=== PATIENT | female | born 1950 | race Caucasian/White ===

== ENCOUNTER 2017-07-30 00:51 | Inpatient (IN) | payer MEDICARE ==
[~2017-07-30] VITALS: Ht 177.8 cm; Wt 77.7 kg
[2017-07-30] VITALS (19 sets, daily range): BP systolic 118–156; BP diastolic 61–93; BMI 23.6
--- NOTE | ~2017-07-30 | HEMODYNAMI ---
PATIENT:SARAN CHANG MEDICAL RECORD: [id number] : 50 LOCATION:[facility] D.[address] [facility]# [id number] ADMISSION DATE: 07/30/17 Generatedon:07/30/20174:07 Patient name: SARAN CHANG Patient #: [id number] SSN: : 1950 Date of study: 07/30/2017 Page: Of Hemodynamic Procedure Report Patient Data Patient Demographics Procedure consent was obtained First Name: SARAN Gender: Female Last Name: BERNARDO : 1950 Middle Initial: German Age: 66 year(s) Patient #: [id number] Race: Unknown Additional ID: [id number] Contact details Address: [address] [place] [address] State: [place] City: [place] Zip code: [address] Admission Admission Data Admission Date: 07/30/2017 Admission Time: 3:57 Room #: D2305 Procedure Procedure Types Cath Procedure Diagnostic Procedure LHC LHC w/Coronaries Devine Insertion PCI Procedure AMI/SVG/PLANT FACILITIES TECHNICIAN PTCA or Stent AMI-BMS/NEHA Initial Miscellaneous Procedures Moderate Sedation up to 45 minutes Peripheral Cath Diagnostic Procedure Cath Peripheral Ebuvw-Xmyusuw-Qkt-Off Procedure Description Procedure Date Procedure Date: 07/30/2017 Procedure Start Time: 1:58 Procedure End Time: 3:34 Procedure Staff Name Function Ericka Comer RT Monitor Roxanne Syed RN Nurse Griffin Johnson MD Performing Physician Landon Mclain RT Scrub Procedure Data Cath Procedure Fluoroscopy Diagnostic fluoroscopy Total fluoroscopy Time: time: 17.5 min 17.5 min Diagnostic fluoroscopy Total fluoroscopy dose: dose: 1204 mGy 1204 mGy Contrast Material Contrast Material Type Amount (ml) Isovue 300 178 Entry Location Entry Primary Successful Side Size Upsize Upsize Entry Closure Succes sful Closure Location (Fr) 1 (Fr) 2 (Fr) Remarks Device Remarks Femoral Right 6 Fr Exoseal artery Short Femoral Left 6 Fr Exoseal artery Short Estimated blood loss: 10 ml Diagnostic catheters Device Type Used For End Catheter Placement MULTIPACK 3DRC 5Fr Procedure catheter MULTIPACK 3DRC 5Fr Right Coronary catheter Angiography MULTIPACK JL 4.0 5Fr Left Coronary catheter Angiography MULTIPACK Pigtail 5 Fr LV Angiography catheter MULTIPACK Pigtail 5 Fr Abdominal catheter aortogram with runoff Procedure Complications No complications Procedure Medications Medication Administration Route Dosage Oxygen NC 2 l/min Lidocaine 2% added to field 20 Heparin Flush Bag added to field 2 bags (1000units/500ml NS) 0.9% NaCl I.V. 100 ml/hr Versed I.V. 1 mg Fentanyl I.V. 50 mcg Oxygen NC 4 l/min Versed I.V. 1 mg Fentanyl I.V. 50 mcg Fentanyl I.V. 50 mcg Fentanyl I.V. 50 mcg Versed I.V. 1 mg Versed I.V. 1 mg Heparin Bolus I.V. 7000 units Integrilin (Bolus I.V. 6.8 ml 2mg/ml) Cardene I.C. 150 mcg Integrilin Drip 11.5 ml/hr (75mg/100ml) Fentanyl I.V. 50 mcg Fentanyl I.V. 50 mcg Plavix P.O. 600 mg Hemodynamics Rest Heart Rate: 91 (bpm) Pressure Samples Time Site Value (mmHg) Purpose Heart Use Rate(bpm) 2:54 LV 115/7,17 EDP 71 2:56 LV 122/8,19 Pullback 71 2:56 AO 118/58(83) Pullback 71 Gradients Valve Time Site 1 Site 2 Mean SEP/DFP Peak To Heart Use (mmHg) (sec/min) Peak Rate (mmHg) (bpm) Aortic 2:56 LV AO 9 18 4 71 122/8,19 118/58(83) Calculations Valve P-P Mean Valve Index Valve Source Name Gradient Area Flow (cm2) Aortic 4 9 4 9 Snapshots Pre Cath Intra NCS Post Cath Vital Signs Time Heart Resp SPO2 etCO2 NIBP (mmHg) Rhythm Pain Sedation Rate (ipm) (%) (mmHg) Status Level (bpm) 1:55:40 87 20 18.3 Time NSR w/ ST 0 (11) 10(A) Exceeded Elevation , No pain 2:01:26 91 19 94 22.8 180/106(146) NSR w/ ST 0 (11) 10(A) Elevation , No pain 2:06:13 87 18 93 19.8 169/100(137) NSR w/ ST 0 (11) 10(A) Elevation , No pain 2:11:02 88 19 93 22.8 181/107(142) NSR w/ ST 0 (11) 9(A) Elevation , No pain 2:15:51 90 18 92 22.1 175/108(143) NSR w/ ST 0 (11) 9(A) Elevation , No pain 2:20:36 92 15 93 25.2 169/107(144) NSR w/ ST 0 (11) 9(A) Elevation , No pain 2:25:22 89 16 93 25.2 167/96(134) NSR w/ ST 0 (11) 9(A) Elevation , No pain 2:30:05 95 13 93 24.4 161/95(130) NSR w/ ST 0 (11) 9(A) Elevation , No pain 2:34:45 72 16 92 24.4 127/77(99) NSR w/ ST 0 (11) 9(A) Elevation , No pain 2:39:26 70 17 92 22.1 115/67(101) NSR w/ ST 0 (11) 9(A) Elevation , No pain 2:44:05 72 19 93 19 122/71(100) NSR w/ ST 0 (11) 9(A) Elevation , No pain 2:48:45 71 20 93 21.3 100/68(86) NSR w/ ST 0 (11) 9(A) Elevation , No pain 2:53:20 69 19 93 20.6 113/65(90) NSR w/ ST 0 (11) 9(A) Elevation , No pain 2:58:00 68 19 94 21.3 105/62(87) NSR w/ ST 0 (11) 9(A) Elevation , No pain 3:02:39 68 16 93 22.8 116/61(89) NSR w/ ST 0 (11) 10(A) Elevation , No pain 3:07:17 70 18 90 23.6 111/67(92) NSR w/ ST 0 (11) 9(A) Elevation , No pain 3:11:56 72 15 92 24.4 115/71(94) NSR w/ ST 0 (11) 9(A) Elevation , No pain 3:16:35 74 17 92 21.3 118/72(97) NSR w/ ST 0 (11) 9(A) Elevation , No pain 3:21:13 72 16 93 24.4 129/72(107) NSR w/ ST 0 (11) 9(A) Elevation , No pain 3:25:56 69 19 96 20.6 126/70(103) NSR w/ ST 0 (11) 9(A) Elevation , No pain 3:30:36 68 18 97 22.8 126/75(105) NSR w/ ST 0 (11) 9(A) Elevation , No pain Medications Time Medication Route Dose Verified Delivered Reason Notes Effectiveness by by 1:52:02 Oxygen NC 2 Griffin Buffie used for l/min Alex Syed RN procedure 1:52:09 Lidocaine 2% added 20ml Griffin Griffin for local to vial Alex Johnson MD anesthetic field x 2 1:52:14 Heparin Flush added 2 Griffin Griffin used for Bag to bags Alex Johnson MD procedure (1000units/500ml field NS) 1:52:23 0.9% NaCl I.V. 100 Griffin Buffie Per physician ml/hr Alex Syed RN 1:57:40 Versed I.V. 1 mg Griffin Buffie for sedation Alex Syed RN 1:57:46 Fentanyl I.V. 50 Griffin Buffie for sedation mcg Alex Syed RN 2:05:42 Versed I.V. 1 mg Griffin Buffie for sedation Alex Syed RN 2:05:45 Fentanyl I.V. 50 Griffin Buffie for sedation mcg Alex Syed RN 2:08:30 Oxygen NC 4 Griffin Buffie used for l/min Alex Syed RN procedure 2:15:09 Fentanyl I.V. 50 Griffin Buffie for sedation mcg Alex Syed RN 2:15:33 Versed I.V. 1 mg Griffin Buffie for sedation Alex Syed RN 2:25:24 Fentanyl I.V. 50 Griffin Buffie for sedation mcg Alex Syed RN 2:25:56 Versed I.V. 1 mg Griffin Buffie for sedation Alex Syed RN 2:31:01 Heparin Bolus I.V. 7,000 Griffin Buffie for units Alex Syed RN anticoagulation 2:43:59 Integrilin I.V. 6.8 Griffin Buffie for wasted (Bolus 2mg/ml) ml Alex Syed RN antiplatelet 3.2 ml therapy of vial 2:47:51 Cardene I.C. 150 Griffin Griffin for mcg Alex perkins 2:57:22 Integrilin Drip I.V. 11.5 Griffin Buffie for (75mg/100ml) drip x ml/hr Alex Syed RN antiplatelet 12 hrs therapy 3:02:25 Fentanyl I.V. 50 Griffin Buffie for sedation armida Syed RN 3:08:25 Fentanyl I.V. 50 Griffin Buffie for sedation armida Syed RN 3:12:51 Plavix P.O. 600 Griffin Diamanteie for mg Alex Syed RN antiplatelet therapy Procedure Log Time Note 1:30:14 Roxanne Syed RN sent for patient. Start room use. 1:38:23 Time tracking: Call back 1:38:27 Plan of Care:Hemodynamics will remain stable., Cardiac rhythm will remain stable., Comfort level will be maintained., Respiratory function will remain adequate., Patient/ family verbilizes understanding of procedure., Procedure tolerated without complication., Recovers from procedure without complications.. 1:50:33 Patient received from ED to CCL 1 Alert and oriented. Tansferred to table in Supine position. 1:50:35 Correct patient and procedure confirmed by team. 1:50:35 Warm blankets applied, and slick hugger turned on for patient comfort. 1:50:36 Signed procedure consent form obtained from patient. 1:50:37 ECG and BP/O2 sat monitors applied to patient. 1:50:46 Rhythm: sinus rhythm , w/ ST elevation 1:50:48 Full Disclosure recording started 1:50:52 H&P Date Dictated: 07/30/2017 Emergent; H&P N/A. 1:50:55 Pre-op teaching completed and patient verbalized understanding. 1:50:55 Pre-procedure instructions explained to patient. 1:50:56 Family in waiting room. 1:50:58 Patient NPO since Midnight. 1:51:04 Is patient on blood thinner?No 1:51:07 Patient diabetic? No. 1:51:11 Previous problem with sedation/anesthesia? No ? 1:51:12 Sleep apnea? No 1:51:12 Snore? Yes 1:51:14 Opens mouth fully? Yes 1:51:14 Deviated septum? No 1:51:15 Sticks out tongue? Yes 1:51:16 Airway obstruction? No ? 1:51:19 Dentures? Yes oUT 1:51:22 Pre procedure: right dorsailis pedis pulse 2+ Normal; easily identifiable; not easily obliterated 1:51:24 Patient pain scale 0/10 ?. 1:51:32 IV patent on arrival in right antecubital with 0.9% NaCl at [facility] 1:51:45 Lab results completed and on chart. 1:51:48 Right groin area was prepped with chlora-prep and draped in sterile fashion 1:51:49 Sharps counted by scrub and verified by R.N. 1:51:49 Alarms reviewed by R. N. 1:51:51 Final Timeout: patient, procedure, and site verified with staff and physician. All members of the team are in agreement. 1:51:52 Right groin site verified by team. 1:51:56 Physical assessment completed. ASA score P 2 - A patient with mild systemic disease as per Griffin Johnson MD. 1:52:00 Sedation plan: IV Moderate Sedation Medication:Versed, Fentanyl 1:52:02 Oxygen 2 l/min NC was administered by Roxanne Syed RN; used for procedure; 1:52:09 Lidocaine 2% 20ml vial x 2 added to field was administered by Griffin Johnson MD; for local anesthetic; 1:52:14 Heparin Flush Bag (1000units/500ml NS) 2 bags added to field was administered by Griffin Johnson MD; used for procedure; 1:52:23 0.9% NaCl 100 ml/hr I.V. was administered by Roxanne Syed RN; Per physician; 1:52:29 Vital chart was started 1:57:40 Versed 1 mg I.V. was administered by Roxanne Syed RN; for sedation; 1:57:46 Fentanyl 50 mcg I.V. was administered by Roxanne Syed RN; for sedation; 1:57:55 Use device set Femoral Dx 1:57:57 Bag Decanter (2001S) opened to sterile field. 1:57:57 ACIST Syringe (07081) opened to sterile field. 1:57:58 DIAGNOSTIC WIRE .035 260cm J wire (927256) opened to sterile field. 1:57:58 Medline Cath Pack ([id number]) opened to sterile field. 1:58:00 ACIST Manifold (59544) opened to sterile field. 1:58:00 ACIST Hand Control (88809) opened to sterile field. 1:58:01 Tegaderm 4 x 4 (1626W) opened to sterile field. 1:58:01 DIAGNOSTIC Multipack 5Fr catheter set (KR5951) opened to sterile field. 1:58:02 PERCUTANEOUS ENTRY 19GA needle opened to sterile field. 1:58:06 Zero performed for pressure channel P1 1:58:09 Procedure started. 1:58:16 Local anesthetic to right femoral artery with Lidocaine 2% by Griffin Johnson MD.INITIAL ACCESS ONLY 2:00:10 Baseline sample Acquired. 2:05:42 Versed 1 mg I.V. was administered by Roxanne Syed RN; for sedation; 2:05:45 Fentanyl 50 mcg I.V. was administered by Roxanne Syed RN; for sedation; 2:06:04 Left groin area was prepped with chlora-prep and draped in sterile fashion 2:06:11 A 6 Fr Short sheath was inserted into the Right Femoral artery 2:07:40 A MULTIPACK 3DRC 5Fr catheter was advanced over the wire and used for Procedure. UNABLE TO ADVANCE CATHETER UP RT ILIAC 2:08:30 Oxygen 4 l/min NC was administered by Roxanne Syed RN; used for procedure; 2:09:08 GLIDEWIRE wire advanced. 2:09:15 Wire removed. 2:09:30 Catheter removed. 2:10:18 Local anesthetic to left femerol artery with Lidocaine 2% by Griffin Johnson MD.ADDITIONAL ACCESS 2:11:06 SHEATH 6FR [place] (NSJ178) opened to sterile field. 2:11:06 SHEATH 6FR [place] (KPR274) opened to sterile field. 2:11:09 GLIDE WIRE ANGLE 260cm (SM6383) opened to sterile field. 2:15:09 Fentanyl 50 mcg I.V. was administered by Roxanne Syed RN; for sedation; 2:15:33 Versed 1 mg I.V. was administered by Roxanne Syed RN; for sedation; 2:19:13 WHOLEY 300cm 0.035 wire ([id number]) opened to sterile field. 2:19:55 WHOLEY wire advanced. 2:23:17 A 6 Fr Short sheath was inserted into the Left Femoral artery 2:23:40 ACCPCI delayed due to OCCLUDED RT ILIAC; DIFFICULTY ACCESSING LFA.(if Door-to--Balloon Time >90 minutes) 2:25:24 Fentanyl 50 mcg I.V. was administered by Roxanne Syed RN; for sedation; 2:25:56 Versed 1 mg I.V. was administered by Roxanne Syed RN; for sedation; 2:26:08 A MULTIPACK 3DRC 5Fr catheter was advanced over the wire and used for Right Coronary Angiography. 2:26:33 Catheter removed. 2:26:40 A MULTIPACK JL 4.0 5Fr catheter was advanced over the wire and used for Left Coronary Angiography. 2:28:01 Catheter removed. 2:28:06 Use device set JOHNSON PCI 2:28:12 BMW 300cm [place] 2 J wire ([id number]) opened to sterile field. 2:28:14 INFLATOR Merit BasixCompak (HH8241) opened to sterile field. 2:28:15 TUBING High Pressure Extension Tubing ([place]) (RZ2704I) opened to sterile field. 2:28:18 GUIDE 6FR XBLAD 3.5 catheter ([id number]) opened to sterile field. 2:29:02 6 Fr XBLAD 3.5 guide catheter was inserted over the wire 2:31:01 Heparin Bolus 7,000 units I.V. was administered by Roxanne Syed RN; for anticoagulation; 2:31:14 BMW wire advanced. 2:34:30 Inflation number: 1 A EMERGE OTW 2.5 x 15 stent ([id number]) was prepped and advanced across the Mid CX, then inflated to 8 MERNA for 0:12 (min:sec). 2:34:54 Inflation number: 2 The EMERGE OTW 2.5 x 15 stent ([id number]) was reinflated across the Mid CX, to 10 MERNA for 0:12 (min:sec). 2:39:45 Balloon removed over the wire. 2:41:46 Inflation Number: 3 A INTEGRITY OTW 2.5 x 14 stent ([id number]) was prepped and advanced across the Mid CX. The stent was deployed at 12 MERNA for 0:12 (min:sec). 2:41:53 Stent catheter was removed intact over wire. 2:43:59 Integrilin (Bolus 2mg/ml) 6.8 ml I.V. was administered by Roxanne Syed RN; for antiplatelet therapy; wasted 3.2 ml of vial 2:45:39 Inflation Number: 4 A INTEGRITY OTW 2.75 X 14 stent ([id number]) was prepped and advanced across the Mid CX. The stent was deployed at 13 MERNA for 0:12 (min:sec). 2:47:51 Cardene 150 mcg I.C. was administered by Griffin Johnson MD; for vasodilation; 2:52:53 Wire removed. 2:52:53 Stent catheter was removed intact over wire. 2:52:54 Guide catheter removed. 2:54:18 A MULTIPACK Pigtail 5 Fr catheter was advanced over the wire and used for LV Angiography. 2:55:22 LV gram done using CHACKO 2:55:23 LV hemodynamics recorded. 2:55:25 Injector settings: Ml/sec: 10, Volume: 20, 2:55:31 EF : 40 % 2:57:17 A MULTIPACK Pigtail 5 Fr catheter was advanced over the wire and used for Abdominal aortogram with runoff. 2:57:22 Integrilin Drip (75mg/100ml) 11.5 ml/hr I.V. drip x 12 hrs was administered by Roxanne Syed RN; for antiplatelet therapy; 3:02:25 Fentanyl 50 mcg I.V. was administered by Roxanne Syed RN; for sedation; 3:08:25 Fentanyl 50 mcg I.V. was administered by Roxanne Syed RN; for sedation; 3:08:38 EXOSEAL 6Fr (EX600) opened to sterile field. 3:08:39 EXOSEAL 6Fr (EX600) opened to sterile field. 3:08:40 Tegaderm 4 x 4 (1626W) opened to sterile field. 3:08:54 Catheter removed. 3:09:05 Sheath removed intact; hemostasis achieved with Exoseal to the Left Femoral artery. 3:09:17 Sheath removed intact; hemostasis achieved with Exoseal to the Right Femoral artery. 3:11:19 Procedure ended.(Physican Out) 3:11:31 Fluoroscopy time 17.50 minutes. 3:11:35 Fluoroscopy dose: 1204 mGy 3:11:35 Flurop Dose total: 1204 3:11:39 Contrast amount:Isovue 300 178ml. 3:11:40 Sharps counted by scrub and verified by R.N. 3:11:41 Insertion/operative site no bleeding no hematoma. 3:11:45 Post-op/insertion site Left Femoral artery dressed using a 4 x 4 and Tegaderm. 3:11:50 Post left femerol artery:stable, clean and dry 3:11:55 Post-op/insertion site Right Femoral artery dressed using a 4 x 4 and Tegaderm. 3:11:59 Post right femoral artery:stable, clean and dry 3:12:00 Post Procedure Pulses reassessed and unchanged 3:12:04 Post-procedure physical assessment completed. ASA score P 2 - A patient with mild systemic disease as per Griffin Johnson MD. 3:12:06 Post procedure rhythm: unchanged. 3:12:08 Estimated blood loss: 10 ml 3:12:12 Patient needs reinforcement of post procedure teaching. 3:12:12 Post procedure instruction explained to patient.Patient verbalizes understanding. 3:12:31 Procedure type changed to Cath procedure, Diagnostic procedure, LHC, LHC w/Coronaries, Devine Insertion, PCI procedure, AMI/SVG/PLANT FACILITIES TECHNICIAN PTCA or Stent, AMI-BMS/NEHA Initial, Miscellaneous Procedures, Moderate Sedation up to 45 minutes, Peripheral Cath Diagnostic Procedure, Cath Peripheral, Ksauv-Pnfyceh-Uja-Off 3:12:36 Procedure Complication : No complications 3:12:38 See physician's report for complete and final results. 3:12:51 Plavix 600 mg P.O. was administered by Roxanne Syed RN; for antiplatelet therapy; 3:22:01 DEVINE 16FR w/Drainage Bag (297548K) opened to sterile field. 3:22:28 16fr standard devine inserted no resistance clear yellow urine obtained. 3:23:27 Procedure and supply charges have been captured, reviewed, submitted and are correct. 3:33:43 Vital chart was stopped 3:33:46 Report given to ICU. 3:33:50 Patient transfered to ICU with Bed. 3:34:00 Full Disclosure recording stopped 3:34:00 Procedure ended. 3:34:02 End room use (Document Last) 4:06:50 Patient developed Rt Femoral hematoma once transferred to ICU. Femstop was placed over RFA. Intervention Summary Intervention Notes Time ActionType Lesion and Equipment Action# Pressure Duration Attributes Used 2:34:30 Inflate Mid CX EMERGE OTW 1 8 00:13 balloon 2.5 x 15 stent ([id number]) 2:34:54 Reinflate Mid CX EMERGE OTW 2 10 00:12 balloon 2.5 x 15 stent ([id number]) 2:41:46 Place stent Mid CX INTEGRITY 3 12 00:12 OTW 2.5 x 14 stent ([id number]) 2:45:39 Place stent Mid CX INTEGRITY 4 13 00:12 OTW 2.75 X 14 stent ([id number]) Device Usage Item Name Manufacture Quantity Catalog Number Hospital Part Current Min imal Lot# / Charge Number Stock Stock Serial# Code ACIST Acist 1 17116 407229 393167 434918 20 Syringe Medical (81349) Systems Inc Bag Decanter Microtek 1 2001S 026277 32126 317800 5 () Medical Inc. Medline Cath Cardinal 1 [id number] 592611 32235 203789 5 Pack Health ([id number]) DIAGNOSTIC [place] 1 139226 837942 088876 685531 30 WIRE .035 260cm J wire (955507) ACIST Hand Acist 1 93848 768796 191280 853786 5 Control Medical (65344) Systems Inc ACIST Acist 1 45759 080650 075079 954211 5 Manifold Medical (24533) Systems Inc DIAGNOSTIC Cardinal 1 JV8852 732791 32447 294046 30 Multipack Health 5Fr catheter set (KO3183) Tegaderm 4 x 3M 2 1626W 330426 874183 252807 5 4 (1626W) PERCUTANEOUS Cook Medical 1 Z55469 934040 035384 5 ENTRY 19GA needle MULTIPACK Cardinal 1 862548 5 3DRC 5Fr Health catheter SHEATH 6FR Terumo 2 QSV976 599768 145922 983865 40 [place] (KUS632) GLIDE WIRE Terumo 1 AT4803 950109 514746 454645 5 ANGLE 260cm (VJ2683) WHOLEY 300cm Medtronic 1 [id number] 044402 813614 625031 3 0.035 wire ([id number]) MULTIPACK JL Cardinal 1 504865 5 4.0 5Fr Health catheter BMW 300cm Jaime 1 [id number] 062673 656538 770329 5 [place] 2 Vascular J wire (3662201C) INFLATOR Merit 1 UG2335 237382 703694 941264 15 Merit Medical BasixCompak (VF7170) TUBING High Merit 1 [id number] 486604 46823 499313 10 Pressure Medical Extension Tubing ([place]) ([id number]) GUIDE 6FR Cardinal 1 [id number] 169057 860456 210170 10 XBLAD 3.5 Health catheter (56221305) EMERGE OTW [place] 1 [id number] 433271 970564 745823 5 [id number] 2.5 x 15 Scientific stent ([id number]) INTEGRITY Medtronic 1 [id number] 047664 993925 3 [id number] OTW 2.5 x 14 stent ([id number]) INTEGRITY Medtronic 1 [id number] 251417 396632 9 [id number] OTW 2.75 X 14 stent ([id number]) MULTIPACK Cardinal 1 925851 5 Pigtail 5 Fr Health catheter EXOSEAL 6Fr Cardinal 2 EX600 570968 907687 256338 10 (EX600) Health DEVINE 16FR Bard 1 [id number] 088391 894706 495552 5 w/Drainage Bag (057018T) Signature Audit [place] Stage Time Signature Unsigned Intra-Procedure 07/30/2017 Ericka Barnett Counts 3:34:19 AM Counts RT(R) RT(R) 07/30/2017 4:05:56 AM Intra-Procedure 07/30/2017 Ericka 4:07:25 AM Counts RT(R) Signatures Monitor : Ericka Signature : Counts RT Date : Time : [facility] [address] [id number]
--- NOTE | ~2017-07-30 | HEMODYNAMI ---
PATIENT:SARAN CHANG MEDICAL RECORD: [id number] : 50 LOCATION:[facility] ADMISSION DATE: 07/30/17 Generatedon:07/30/20173:34 Patient name: SARAN CHANG Patient #: [id number] SSN: : 1950 Date of study: 07/30/2017 Page: Of Hemodynamic Procedure Report Patient Data Patient Demographics Procedure consent was obtained First Name: SARAN Gender: Female Last Name: BERNARDO : 1950 [facility] Initial: Fritz. Age: 66 year(s) Patient #: [id number] Race: Unknown Additional ID: [id number] Contact details [address]: [address] [place] [address] State: [place] City: [place] Zip code: [address] Admission Admission Data Admission Date: 07/30/2017 Admission Time: 0:51 Procedure Procedure Types Cath Procedure Diagnostic Procedure LHC LHC w/Coronaries Devine Insertion PCI Procedure AMI/SVG/PMO CONSULTANT PTCA or Stent AMI-BMS/NEHA Initial Miscellaneous Procedures Moderate Sedation up to 45 minutes Peripheral Cath Diagnostic Procedure Cath Peripheral Hjlsf-Gwappzh-Dyo-Off Procedure Description Procedure Date Procedure Date: 07/30/2017 Procedure Start Time: 1:58 Procedure End Time: 3:34 Procedure Staff Name Function Griffin Johnson MD Performing Physician Ericka Comer RT Monitor Landon Mclain RT Scrub Roxanne Syed RN Nurse Procedure Data Cath Procedure Fluoroscopy Diagnostic fluoroscopy Total fluoroscopy Time: time: 17.5 min 17.5 min Diagnostic fluoroscopy Total fluoroscopy dose: dose: 1204 mGy 1204 mGy Contrast Material Contrast Material Type Amount (ml) Isovue 300 178 Entry Location Entry Primary Successful Side Size Upsize Upsize Entry Closure Succes sful Closure Location (Fr) 1 (Fr) 2 (Fr) Remarks Device Remarks Femoral Right 6 Fr Exoseal artery Short Femoral Left 6 Fr Exoseal artery Short Estimated blood loss: 10 ml Diagnostic catheters Device Type Used For End Catheter Placement MULTIPACK 3DRC 5Fr Procedure catheter MULTIPACK 3DRC 5Fr Right Coronary catheter Angiography MULTIPACK JL 4.0 5Fr Left Coronary catheter Angiography MULTIPACK Pigtail 5 Fr LV Angiography catheter MULTIPACK Pigtail 5 Fr Abdominal catheter aortogram with runoff Procedure Complications No complications Procedure Medications Medication Administration Route Dosage Oxygen NC 2 l/min Lidocaine 2% added to field 20 Heparin Flush Bag added to field 2 bags (1000units/500ml NS) 0.9% NaCl I.V. 100 ml/hr Versed I.V. 1 mg Fentanyl I.V. 50 mcg Oxygen NC 4 l/min Versed I.V. 1 mg Fentanyl I.V. 50 mcg Fentanyl I.V. 50 mcg Fentanyl I.V. 50 mcg Versed I.V. 1 mg Versed I.V. 1 mg Heparin Bolus I.V. 7000 units Integrilin (Bolus I.V. 6.8 ml 2mg/ml) Cardene I.C. 150 mcg Integrilin Drip 11.5 ml/hr (75mg/100ml) Fentanyl I.V. 50 mcg Fentanyl I.V. 50 mcg Plavix P.O. 600 mg Hemodynamics Rest Heart Rate: 91 (bpm) Pressure Samples Time Site Value (mmHg) Purpose Heart Use Rate(bpm) 2:54 LV 115/7,17 EDP 71 2:56 AO 118/58(83) Pullback 71 2:56 LV 122/8,19 Pullback 71 Gradients Valve Time Site 1 Site 2 Mean SEP/DFP Peak To Heart Use (mmHg) (sec/min) Peak Rate (mmHg) (bpm) Aortic 2:56 LV AO 9 18 4 71 122/8,19 118/58(83) Calculations Valve P-P Mean Valve Index Valve Source Name Gradient Area Flow (cm2) Aortic 4 9 4 9 Snapshots Pre Cath Intra NCS Post Cath Vital Signs Time Heart Resp SPO2 etCO2 NIBP (mmHg) Rhythm Pain Sedation Rate (ipm) (%) (mmHg) Status Level (bpm) 1:55:40 87 20 18.3 Time NSR w/ ST 0 (11) 10(A) Exceeded Elevation , No pain 2:01:26 91 19 94 22.8 180/106(146) NSR w/ ST 0 (11) 10(A) Elevation , No pain 2:06:13 87 18 93 19.8 169/100(137) NSR w/ ST 0 (11) 10(A) Elevation , No pain 2:11:02 88 19 93 22.8 181/107(142) NSR w/ ST 0 (11) 9(A) Elevation , No pain 2:15:51 90 18 92 22.1 175/108(143) NSR w/ ST 0 (11) 9(A) Elevation , No pain 2:20:36 92 15 93 25.2 169/107(144) NSR w/ ST 0 (11) 9(A) Elevation , No pain 2:25:22 89 16 93 25.2 167/96(134) NSR w/ ST 0 (11) 9(A) Elevation , No pain 2:30:05 95 13 93 24.4 161/95(130) NSR w/ ST 0 (11) 9(A) Elevation , No pain 2:34:45 72 16 92 24.4 127/77(99) NSR w/ ST 0 (11) 9(A) Elevation , No pain 2:39:26 70 17 92 22.1 115/67(101) NSR w/ ST 0 (11) 9(A) Elevation , No pain 2:44:05 72 19 93 19 122/71(100) NSR w/ ST 0 (11) 9(A) Elevation , No pain 2:48:45 71 20 93 21.3 100/68(86) NSR w/ ST 0 (11) 9(A) Elevation , No pain 2:53:20 69 19 93 20.6 113/65(90) NSR w/ ST 0 (11) 9(A) Elevation , No pain 2:58:00 68 19 94 21.3 105/62(87) NSR w/ ST 0 (11) 9(A) Elevation , No pain 3:02:39 68 16 93 22.8 116/61(89) NSR w/ ST 0 (11) 10(A) Elevation , No pain 3:07:17 70 18 90 23.6 111/67(92) NSR w/ ST 0 (11) 9(A) Elevation , No pain 3:11:56 72 15 92 24.4 115/71(94) NSR w/ ST 0 (11) 9(A) Elevation , No pain 3:16:35 74 17 92 21.3 118/72(97) NSR w/ ST 0 (11) 9(A) Elevation , No pain 3:21:13 72 16 93 24.4 129/72(107) NSR w/ ST 0 (11) 9(A) Elevation , No pain 3:25:56 69 19 96 20.6 126/70(103) NSR w/ ST 0 (11) 9(A) Elevation , No pain 3:30:36 68 18 97 22.8 126/75(105) NSR w/ ST 0 (11) 9(A) Elevation , No pain Medications Time Medication Route Dose Verified Delivered Reason Notes Effectiveness by by 1:52:02 Oxygen NC 2 Griffin Buffie used for l/min Alex Syed RN procedure 1:52:09 Lidocaine 2% added 20ml Griffin Griffin for local to vial Alex Johnson MD anesthetic field x 2 1:52:14 Heparin Flush added 2 Griffin Griffin used for Bag to bags Alex Johnson MD procedure (1000units/500ml field NS) 1:52:23 0.9% NaCl I.V. 100 Griffin Buffie Per physician ml/hr Alex Syed RN 1:57:40 Versed I.V. 1 mg Griffin Buffie for sedation Alex Syed RN 1:57:46 Fentanyl I.V. 50 Griffin Buffie for sedation mcg Alex Syed RN 2:05:42 Versed I.V. 1 mg Griffin Buffie for sedation Alex Syed RN 2:05:45 Fentanyl I.V. 50 Griffin Buffie for sedation mcg Alex Syed RN 2:08:30 Oxygen NC 4 Griffin Buffie used for l/min Alex Syed RN procedure 2:15:09 Fentanyl I.V. 50 Griffin Buffie for sedation mcg Alex Syed RN 2:15:33 Versed I.V. 1 mg Griffin Buffie for sedation Alex Syed RN 2:25:24 Fentanyl I.V. 50 Griffin Buffie for sedation mcg Alex Syed RN 2:25:56 Versed I.V. 1 mg Griffin Buffie for sedation Alex Syed RN 2:31:01 Heparin Bolus I.V. 7,000 Griffin Buffie for units Alex Syed RN anticoagulation 2:43:59 Integrilin I.V. 6.8 Griffin Buffie for wasted (Bolus 2mg/ml) ml Alex Syed RN antiplatelet 3.2 ml therapy of vial 2:47:51 Cardene I.C. 150 Griffin Griffin for mcg Alex perkins 2:57:22 Integrilin Drip I.V. 11.5 Griffin Buffie for (75mg/100ml) drip x ml/hr Alex Syed RN antiplatelet 12 hrs therapy 3:02:25 Fentanyl I.V. 50 Griffin Buffie for sedation armida Syed RN 3:08:25 Fentanyl I.V. 50 Griffin Buffie for sedation armida Syed RN 3:12:51 Plavix P.O. 600 Griffin Diamanteie for mg Alex Syed RN antiplatelet therapy Procedure Log Time Note 1:30:14 Roxanne Syed RN sent for patient. Start room use. 1:38:23 Time tracking: Call back 1:38:27 Plan of Care:Hemodynamics will remain stable., Cardiac rhythm will remain stable., Comfort level will be maintained., Respiratory function will remain adequate., Patient/ family verbilizes understanding of procedure., Procedure tolerated without complication., Recovers from procedure without complications.. 1:50:33 Patient received from ED to CCL 1 Alert and oriented. Tansferred to table in Supine position. 1:50:35 Warm blankets applied, and slick hugger turned on for patient comfort. 1:50:35 Correct patient and procedure confirmed by team. 1:50:36 Signed procedure consent form obtained from patient. 1:50:37 ECG and BP/O2 sat monitors applied to patient. 1:50:46 Rhythm: sinus rhythm , w/ ST elevation 1:50:48 Full Disclosure recording started 1:50:52 H&P Date Dictated: 07/30/2017 Emergent; H&P N/A. 1:50:55 Pre-procedure instructions explained to patient. 1:50:55 Pre-op teaching completed and patient verbalized understanding. 1:50:56 Family in waiting room. 1:50:58 Patient NPO since Midnight. 1:51:04 Is patient on blood thinner?No 1:51:07 Patient diabetic? No. 1:51:11 Previous problem with sedation/anesthesia? No ? 1:51:12 Snore? Yes 1:51:12 Sleep apnea? No 1:51:14 Deviated septum? No 1:51:14 Opens mouth fully? Yes 1:51:15 Sticks out tongue? Yes 1:51:16 Airway obstruction? No ? 1:51:19 Dentures? Yes oUT 1:51:22 Pre procedure: right dorsailis pedis pulse 2+ Normal; easily identifiable; not easily obliterated 1:51:24 Patient pain scale 0/10 ?. 1:51:32 IV patent on arrival in right antecubital with 0.9% NaCl at [facility]. 1:51:45 Lab results completed and on chart. 1:51:48 Right groin area was prepped with chlora-prep and draped in sterile fashion 1:51:49 Alarms reviewed by R. N. 1:51:49 Sharps counted by scrub and verified by R.N. 1:51:51 Final Timeout: patient, procedure, and site verified with staff and physician. All members of the team are in agreement. 1:51:52 Right groin site verified by team. 1:51:56 Physical assessment completed. ASA score P 2 - A patient with mild systemic disease as per Griffin Johnson MD. 1:52:00 Sedation plan: IV Moderate Sedation Medication:Versed, Fentanyl 1:52:02 Oxygen 2 l/min NC was administered by Roxanne Syed RN; used for procedure; 1:52:09 Lidocaine 2% 20ml vial x 2 added to field was administered by Griffin Johnson MD; for local anesthetic; 1:52:14 Heparin Flush Bag (1000units/500ml NS) 2 bags added to field was administered by Griffin Johnson MD; used for procedure; 1:52:23 0.9% NaCl 100 ml/hr I.V. was administered by Roxanne Syed RN; Per physician; 1:52:29 Vital chart was started 1:57:40 Versed 1 mg I.V. was administered by Roxanne Syed RN; for sedation; 1:57:46 Fentanyl 50 mcg I.V. was administered by Roxanne Syed RN; for sedation; 1:57:55 Use device set Femoral Dx 1:57:57 ACIST Syringe (01067) opened to sterile field. 1:57:57 Bag Decanter (2002S) opened to sterile field. 1:57:58 Medline Cath Pack ([id number]) opened to sterile field. 1:57:58 DIAGNOSTIC WIRE .035 260cm J wire (167620) opened to sterile field. 1:58:00 ACIST Hand Control (04742) opened to sterile field. 1:58:00 ACIST Manifold (40448) opened to sterile field. 1:58:01 DIAGNOSTIC Multipack 5Fr catheter set (FA9103) opened to sterile field. 1:58:01 Tegaderm 4 x 4 (1626W) opened to sterile field. 1:58:02 PERCUTANEOUS ENTRY 19GA needle opened to sterile field. 1:58:06 Zero performed for pressure channel P1 1:58:09 Procedure started. 1:58:16 Local anesthetic to right femoral artery with Lidocaine 2% by Griffin Johnson MD.INITIAL ACCESS ONLY 2:00:10 Baseline sample Acquired. 2:05:42 Versed 1 mg I.V. was administered by Roxanne Syed RN; for sedation; 2:05:45 Fentanyl 50 mcg I.V. was administered by Roxanne Syed RN; for sedation; 2:06:04 Left groin area was prepped with chlora-prep and draped in sterile fashion 2:06:11 A 6 Fr Short sheath was inserted into the Right Femoral artery 2:07:40 A MULTIPACK 3DRC 5Fr catheter was advanced over the wire and used for Procedure. UNABLE TO ADVANCE CATHETER UP RT ILIAC 2:08:30 Oxygen 4 l/min NC was administered by Roxanne Syed RN; used for procedure; 2:09:08 GLIDEWIRE wire advanced. 2:09:15 Wire removed. 2:09:30 Catheter removed. 2:10:18 Local anesthetic to left femerol artery with Lidocaine 2% by Griffin Johnson MD.ADDITIONAL ACCESS 2:11:06 SHEATH 6FR Forbes (GMM316) opened to sterile field. 2:11:06 SHEATH 6FR Forbes (DVL728) opened to sterile field. 2:11:09 GLIDE WIRE ANGLE 260cm (SG1701) opened to sterile field. 2:15:09 Fentanyl 50 mcg I.V. was administered by Roxanne Syed RN; for sedation; 2:15:33 Versed 1 mg I.V. was administered by Roxanne Syed RN; for sedation; 2:19:13 WHOLEY 300cm 0.035 wire ([id number]) opened to sterile field. 2:19:55 WHOLEY wire advanced. 2:23:17 A 6 Fr Short sheath was inserted into the Left Femoral artery 2:23:40 ACCPCI delayed due to OCCLUDED RT ILIAC; DIFFICULTY ACCESSING LFA.(if Door-to--Balloon Time >90 minutes) 2:25:24 Fentanyl 50 mcg I.V. was administered by Roxanne Syed RN; for sedation; 2:25:56 Versed 1 mg I.V. was administered by Roxanne Syed RN; for sedation; 2:26:08 A MULTIPACK 3DRC 5Fr catheter was advanced over the wire and used for Right Coronary Angiography. 2:26:33 Catheter removed. 2:26:40 A MULTIPACK JL 4.0 5Fr catheter was advanced over the wire and used for Left Coronary Angiography. 2:28:01 Catheter removed. 2:28:06 Use device set JOHNSON PCI 2:28:12 BMW 300cm [place] 2 J wire ([id number]) opened to sterile field. 2:28:14 INFLATOR Merit BasixCompak (FL0350) opened to sterile field. 2:28:15 TUBING High Pressure Extension Tubing (Johnson) ([id number]) opened to sterile field. 2:28:18 GUIDE 6FR XBLAD 3.5 catheter ([id number]) opened to sterile field. 2:29:02 6 Fr XBLAD 3.5 guide catheter was inserted over the wire 2:31:01 Heparin Bolus 7,000 units I.V. was administered by Roxanne Syed RN; for anticoagulation; 2:31:14 BMW wire advanced. 2:34:30 Inflation number: 1 A EMERGE OTW 2.5 x 15 stent ([id number]) was prepped and advanced across the Mid CX, then inflated to 8 MERNA for 0:12 (min:sec). 2:34:54 Inflation number: 2 The EMERGE OTW 2.5 x 15 stent ([id number]) was reinflated across the Mid CX, to 10 MERNA for 0:12 (min:sec). 2:39:45 Balloon removed over the wire. 2:41:46 Inflation Number: 3 A INTEGRITY OTW 2.5 x 14 stent ([id number]) was prepped and advanced across the Mid CX. The stent was deployed at 12 MERNA for 0:12 (min:sec). 2:41:53 Stent catheter was removed intact over wire. 2:43:59 Integrilin (Bolus 2mg/ml) 6.8 ml I.V. was administered by Roxanne Syed RN; for antiplatelet therapy; wasted 3.2 ml of vial 2:45:39 Inflation Number: 4 A INTEGRITY OTW 2.75 X 14 stent ([id number]) was prepped and advanced across the Mid CX. The stent was deployed at 13 MERNA for 0:12 (min:sec). 2:47:51 Cardene 150 mcg I.C. was administered by Griffin Johnson MD; for vasodilation; 2:52:53 Stent catheter was removed intact over wire. 2:52:53 Wire removed. 2:52:54 Guide catheter removed. 2:54:18 A MULTIPACK Pigtail 5 Fr catheter was advanced over the wire and used for LV Angiography. 2:55:22 LV gram done using CHACKO 2:55:23 LV hemodynamics recorded. 2:55:25 Injector settings: Ml/sec: 10, Volume: 20, 2:55:31 EF : 40 % 2:57:17 A MULTIPACK Pigtail 5 Fr catheter was advanced over the wire and used for Abdominal aortogram with runoff. 2:57:22 Integrilin Drip (75mg/100ml) 11.5 ml/hr I.V. drip x 12 hrs was administered by Roxanne Syed RN; for antiplatelet therapy; 3:02:25 Fentanyl 50 mcg I.V. was administered by Roxanne Syed RN; for sedation; 3:08:25 Fentanyl 50 mcg I.V. was administered by Roxanne Syed RN; for sedation; 3:08:38 EXOSEAL 6Fr (EX600) opened to sterile field. 3:08:39 EXOSEAL 6Fr (EX600) opened to sterile field. 3:08:40 Tegaderm 4 x 4 (1626W) opened to sterile field. 3:08:54 Catheter removed. 3:09:05 Sheath removed intact; hemostasis achieved with Exoseal to the Left Femoral artery. 3:09:17 Sheath removed intact; hemostasis achieved with Exoseal to the Right Femoral artery. 3:11:19 Procedure ended.(Physican Out) 3:11:31 Fluoroscopy time 17.50 minutes. 3:11:35 Fluoroscopy dose: 1204 mGy 3:11:35 Flurop Dose total: 1204 3:11:39 Contrast amount:Isovue 300 178ml. 3:11:40 Sharps counted by scrub and verified by R.N. 3:11:41 Insertion/operative site no bleeding no hematoma. 3:11:45 Post-op/insertion site Left Femoral artery dressed using a 4 x 4 and Tegaderm. 3:11:50 Post left femerol artery:stable, clean and dry 3:11:55 Post-op/insertion site Right Femoral artery dressed using a 4 x 4 and Tegaderm. 3:11:59 Post right femoral artery:stable, clean and dry 3:12:00 Post Procedure Pulses reassessed and unchanged 3:12:04 Post-procedure physical assessment completed. ASA score P 2 - A patient with mild systemic disease as per Griffin Johnson MD. 3:12:06 Post procedure rhythm: unchanged. 3:12:08 Estimated blood loss: 10 ml 3:12:12 Post procedure instruction explained to patient.Patient verbalizes understanding. 3:12:12 Patient needs reinforcement of post procedure teaching. 3:12:31 Procedure type changed to Cath procedure, Diagnostic procedure, LHC, LHC w/Coronaries, Devine Insertion, PCI procedure, AMI/SVG/PMO CONSULTANT PTCA or Stent, AMI-BMS/NEHA Initial, Miscellaneous Procedures, Moderate Sedation up to 45 minutes, Peripheral Cath Diagnostic Procedure, Cath Peripheral, Gugqb-Qmhegoh-Thj-Off 3:12:36 Procedure Complication : No complications 3:12:38 See physician's report for complete and final results. 3:12:51 Plavix 600 mg P.O. was administered by Roxanne Syed RN; for antiplatelet therapy; 3:22:01 DEVINE 16FR w/Drainage Bag (518081I) opened to sterile field. 3:22:28 16fr standard devine inserted no resistance clear yellow urine obtained. 3:23:27 Procedure and supply charges have been captured, reviewed, submitted and are correct. 3:33:43 Vital chart was stopped 3:33:46 Report given to ICU. 3:33:50 Patient transfered to ICU with Bed. 3:34:00 Procedure ended. 3:34:00 Full Disclosure recording stopped 3:34:02 End room use (Document Last) Intervention Summary Intervention Notes Time ActionType Lesion and Equipment Action# Pressure Duration Attributes Used 2:34:30 Inflate Mid CX EMERGE OTW 1 8 00:13 balloon 2.5 x 15 stent ([id number]) 2:34:54 Reinflate Mid CX EMERGE OTW 2 10 00:12 balloon 2.5 x 15 stent ([id number]) 2:41:46 Place stent Mid CX INTEGRITY 3 12 00:12 OTW 2.5 x 14 stent ([id number]) 2:45:39 Place stent Mid CX INTEGRITY 4 13 00:12 OTW 2.75 X 14 stent ([id number]) Device Usage Item Name Manufacture Quantity Catalog Number Hospital Part Current Min imal Lot# / Charge Number Stock Stock Serial# Code ACIST Acist 1 [id number] [id number] 20 Syringe Medical (42174) Systems Inc Bag Decanter Microtek 1 2001S 130699 5 () Medical Inc. Medline Cath Cardinal 1 [id number] 634205 5 Pack Health ([id number]) DIAGNOSTIC [place] 1 852947 519784 30 WIRE .035 260cm J wire (487444) ACIST Hand Acist 1 48154 395850 5 Control Medical (61943) Systems Inc ACIST Acist 1 68839 189317 5 Manifold Medical (45612) Systems Inc DIAGNOSTIC Cardinal 1 [id number] 392756 30 Multipack Health 5Fr catheter set (PB1257) Tegaderm 4 x 3M 2 1626W 476878 5 4 (1626W) PERCUTANEOUS Baby World Language Medical 1 N19843 129437 5 ENTRY 19GA needle MULTIPACK Cardinal 1 094272 5 3DRC 5Fr Health catheter SHEATH 6FR Terumo 2 YXV388 836008 40 Forbes (XAA634) GLIDE WIRE Terumo 1 PN4006 687589 5 ANGLE 260cm (HP2603) WHOLEY 300cm Medtronic 1 [id number] 931163 3 0.035 wire ([id number]) MULTIPACK JL Cardinal 1 185353 5 4.0 5Fr Health catheter BMW 300cm Jaime 1 [id number] 349951 5 [place] 2 Vascular J wire (6088041S) INFLATOR Merit 1 LJ2215 119917 15 [place] Medical BasixCompak (OM7137) TUBING High Merit 1 [id number] 753294 10 Pressure Medical Extension Tubing (Johnson) (XE4960M) GUIDE 6FR Cardinal 1 91005930 753601 10 XBLAD 3.5 Health catheter (18033786) EMERGE OTW [place] 1 [id number] 297272 5 [id number] 2.5 x 15 Scientific stent ([id number]) INTEGRITY Medtronic 1 [id number] 565780 2 [id number] OTW 2.5 x 14 stent ([id number]) INTEGRITY Medtronic 1 [id number] 980939 4 [id number] OTW 2.75 X 14 stent ([id number]) MULTIPACK Cardinal 1 579945 5 Pigtail 5 Fr Health catheter EXOSEAL 6Fr Cardinal 2 EX600 352154 10 (EX600) Health DEVINE 16FR Bard 1 [id number] 741073 5 w/Drainage Bag ([id number]) Signature Audit [place] Stage Time Signature Unsigned Intra-Procedure 07/30/2017 Ericka 3:34:19 AM Counts RT(R) Signatures Monitor : Ericka Signature : Counts RT Date : Time : [place] [id number] [place] [address]
[2017-07-30 01:13] LABS: BASOPHILS 0.1 % (0-2); EOSINOPHILS 0.1 % (0-7); HEMATOCRIT 47.6 % (36.0-48.0); HEMOGLOBIN 16.4 g/dL (12-16); IMMATURE GRANULOCYTES 0.2 % (0-5); LYMPHOCYTES 15.4 % (15-50); MCH 31.1 pg (26.0-34.0); MCHC 34.5 g/dL (31.0-37.0); MCV 90.3 fL (80.0-100.0); MEAN PLATELET VOLUME 9.7 fL (7.4-10.4); MONOCYTES 4.4 % (2-11); NEUTROPHILS 79.8 % (40-80); PLATELET COUNT 180 10x3/uL (130-400); RBC 5.27 10x6/uL (4.00-5.40); RDW 13.1 % (11.5-14.5); WBC 12.6 10x3/uL (4.8-10.8)
[2017-07-30 01:28] LABS: ALBUMIN 3.8 g/dL (3.4-5.0); ALKALINE PHOSPHATASE 93 U/L (46-116); ALT (SGPT) 18 U/L (10-68); BILIRUBIN - TOTAL 0.29 mg/dL (0.2-1.3); CALC OSMOLALITY 282 mosm/kg (275-300); CALCIUM 8.9 mg/dL (8.5-10.1); CARBON DIOXIDE 22.8 mmol/L (21.0-32.0); CHLORIDE - SERUM 102 mmol/L (98-107); CREATININE - SERUM 1.2 mg/dL (0.6-1.3); GLUCOSE 203 mg/dL (74-106); POTASSIUM - SERUM 3.4 mmol/L (3.5-5.1); PROTEIN - SERUM 7.8 g/dL (6.4-8.2); SODIUM 138 mmol/L (136-145); UREA NITROGEN 15 mg/dL (7-18); eGFR NON AFRICAN AMERICAN 48 mL/min (90-120)
[2017-07-30 01:48] LABS: CHOL - HDL RATIO 4.5 ratio (2.3-4.1); CHOLESTEROL, TOTAL 183 mg/dL (0-200); CKMB 36.9 U/L (0.0-3.6); CREATINE KINASE 327 UL (21-215); HDL CHOLESTEROL 41 mg/dL (32-96); LDL CHOLESTEROL 115 mg/dL (0-100); LDL-HDL RATIO 2.8 ratio (1.5-3.5); MAGNESIUM - SERUM 2.6 mg/dL (1.8-2.4); PRO BNP 1444 pg/mL (0-125); TRIGLYCERIDE 137 mg/dL (30-200)
[2017-07-30 01:50] LABS: TROPONIN-I 3.113 ng/mL (0.000-0.060)
[2017-07-30] MEDS ORDERED: HYDROCODONE-APA1 TAB PO (04:26)
[2017-07-30] MEDS ORDERED: CYCLOBENZAPRINE10 MG PO (04:26)
[2017-07-30] MEDS ORDERED: MACROBID100 MG PO (04:28)
[2017-07-30 04:37] LABS: ANION GAP 17.4 mmol/L (8-16); CALCIUM 8.8 mg/dL (8.5-10.1); CARBON DIOXIDE 21.6 mmol/L (21.0-32.0)
[2017-07-31 00:54] VITALS: BP 133/76
[2017-07-31 06:02] VITALS: BP 117/64
[2017-07-31 09:46] VITALS: BP 109/86
[2017-07-31 12:47] VITALS: BMI 23.5
[2017-07-31 15:33] VITALS: Ht 177.8 cm; Wt 77.7 kg
[2017-07-31 16:29] VITALS: BP 143/78
[2017-07-31 19:00] VITALS: BP 152/90
== END 2017-08-01 02:17 | DRG 249 ==
LOC: D.ER 00:51 → D.CATH 00:51 → EDSTATUS 01:21 → D.ICU 03:56 → D.CATH 03:57 → D.M2 03:57 → D.ICU 03:57 → D.M2 21:39
PROVIDERS: Family Medicine; Internal Medicine Cardiovascular Disease
PROC: B3101ZZ Fluoroscopy of Thoracic Aorta using Low Osmolar Contrast (ICD-10-PCS; 2017-07-30)
PROC: B2111ZZ Fluoroscopy of Multiple Coronary Arteries using Low Osmolar Contrast (ICD-10-PCS; 2017-07-30)
PROC: B2151ZZ Fluoroscopy of Left Heart using Low Osmolar Contrast (ICD-10-PCS; 2017-07-30)
PROC: 5A12012 Performance of Cardiac Output, Single, Manual (ICD-10-PCS; 2017-07-30)
PROC: 04703ZZ Dilation of Abdominal Aorta, Percutaneous Approach (ICD-10-PCS; 2017-07-30)
PROC: 047C3ZZ Dilation of Right Common Iliac Artery, Percutaneous Approach (ICD-10-PCS; 2017-07-30)
PROC: 047H3ZZ Dilation of Right External Iliac Artery, Percutaneous Approach (ICD-10-PCS; 2017-07-30)
PROC: 04793ZZ Dilation of Right Renal Artery, Percutaneous Approach (ICD-10-PCS; 2017-07-30)
PROC: 02703DZ Dilation of Coronary Artery, One Artery with Intraluminal Device, Percutaneous Approach (ICD-10-PCS; principal; 2017-07-30 01:30)
PROC: 4A023N7 Measurement of Cardiac Sampling and Pressure, Left Heart, Percutaneous Approach (ICD-10-PCS; 2017-07-30 01:30)
PROC: 5A12012 Performance of Cardiac Output, Single, Manual (ICD-10-PCS; 2017-08-01)
DX: I21.19 ST elevation (STEMI) myocardial infarction involving other coronary artery of inferior wall (principal); I77.9 Disorder of arteries and arterioles, unspecified; J44.9 Chronic obstructive pulmonary disease, unspecified; I08.3 Combined rheumatic disorders of mitral, aortic and tricuspid valves; I70.1 Atherosclerosis of renal artery; I70.203 Unspecified atherosclerosis of native arteries of extremities, bilateral legs; I95.9 Hypotension, unspecified; Z72.0 Tobacco use